=== PATIENT | female | born 1955 | race Caucasian/White ===

== ENCOUNTER → 2025-01-03 12:53 | Outpatient (REF) | payer OTHER, SELFPAY | LOC: WDC 12:53 | PROVIDERS: ATTENDING PHYSICIAN Internal Medicine | DX: I82.721 Chronic embolism and thrombosis of deep veins of right upper extremity (principal); M81.0 Age-related osteoporosis without current pathological fracture; Z12.31 Encounter for screening mammogram for malignant neoplasm of breast | CPT/HCPCS: 77063; 77067; 77080 ==

== ENCOUNTER 2025-06-12 06:17 | Day surgery (SDC) | payer OTHER, SELFPAY ==
[2025-06-12 07:37] LABS: Glucose - Point of Care 125 mg/dl (70-99)
== END 2025-06-12 09:06 | disposition home or self-care (01) ==
LOC: GI 06:17
PROVIDERS: ATTENDING PHYSICIAN Internal Medicine Gastroenterology
DX: Z12.11 Encounter for screening for malignant neoplasm of colon (principal); Z53.09 Procedure and treatment not carried out because of other contraindication
CPT/HCPCS: G0121; 82962